=== PATIENT | female | born 1930 | race Caucasian/White ===

== ENCOUNTER 2016-12-04 14:19 | Emergency (ER) | payer MEDICARE ==
[~2016-12-04 14:19] MED LIST: ALDACTONE DPS25 MG PO; ATIVAN-DPS0.5 MG PO; BENADRYL-DPS25 MG PO; BENICAR40 MG PO; CALCIUM 600+D31 EACH PO; CATAPRES-DPS0.1 MG PO; LASIX20 M1 PO; LOVENOX DP40 MG/0.4 SQ; MAALOX DPS30 ML PO; MICRO-K DPS10 MEQ PO; MILK OF MAGNESI10 ML PO; NORCO 5-325 TA1 EACH PO; PEPCID DPS20 MG PO; PRILOSEC DPS20 MG PO; SENOKOT S1 TAB PO; TENORMIN DPS50 MG PO; TYLENOL DPS325 MG PO
--- NOTE | 2016-12-21 08:17 | ER ---
ADMIT: 12/04/2016 RM/LOC: ER [facility] MR#: [id number] [address] [facility] [address] [place], [place] [address] JHOAN MELARA [address] [address] Emergency Room Report SEX: F AGE: 86 : 1930 DATE: 12/04/2016 HISTORY OF PRESENT ILLNESS: The patient is an 86-year-old female, brought in by ambulance to the emergency room from [facility] with the symptoms of not feeling good. She has had a blood pressure that has been elevated for quite some time. Her sister who is accompanying her in the room says that she was not feeling good for about one week, but in the last 4 days, she has been worse. She had some nausea. Her daughter also mentioned that she had had speech change this weekend, but so far, it is longer than 4 hours. Her blood sugar by the ambulance crew was 136. One week ago, she went to Dr. Lundy, had labs done, and she had a good health report. REVIEW OF SYSTEMS: Positive for nausea, headache, difficulty with speech and anxiety. PAST MEDICAL HISTORY: CHF, hypertension, and GERD. She had had an appendectomy. MEDICATIONS: Include: 1. Calcium. 2. Losartan. 3. Atenolol. 4. Clonidine. 5. Spironolactone. 6. Pepcid. 7. Janel Aspirin. ALLERGIES: NONE. PHYSICAL EXAMINATION: GENERAL: Moderately anxious female. VITAL SIGNS: Blood pressure 185/78 with a heart rate of 72, respirations 19, temp is 97.8, O2 sats 96%. NECK: Supple. RESPIRATIONS: No distress. CVS: Regular in rate and rhythm. As a matter of fact, her EKG shows normal sinus rhythm at 67 beats per minute, but there are also some T changes that are verified by Dr. Antunez. No ST depression. EXTREMITIES: She does have pedal edema bilaterally. This is chronic in etiology. NEURO: Intact. Oriented x4. Mood and affect appropriate. LABORATORY DATA: CBC within normal limits. Chemistry; BUN of 28 with a ADMIT: 12/04/2016 RM/LOC: [facility] MR#: [id number] [address] [facility] [address] [place], [place] [address] FLOWER MELARAN [address] [place] [address] Emergency Room Report SEX: F AGE: 86 : 1930 glucose of 134 and a creatinine of 1.2. BNP is 1889. She has some hyaline casts in the urine and WBC cast 2. A CT scan of the head was done due to reported changes in her speech. 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 CLINICAL IMPRESSION: 1. Congestive heart failure exacerbation with mild dehydration. 2. Headache. I contacted Dr. Neal, who wanted to make an appointment in a week to kind of go over her labs and her CT report for further studies. YEE Engle / Marlo Antunez MD / modl JOB #: [id number] CC: Marlo Antunez MD, Attending Physician Shan Neal MD, Family Physician
== END 2016-12-04 17:29 | disposition home or self-care (01) ==
LOC: ER 14:19
DX: E86.0 Dehydration (principal); I11.0 Hypertensive heart disease with heart failure; I50.9 Heart failure, unspecified; K21.9 Gastro-esophageal reflux disease without esophagitis; Z90.49 Acquired absence of other specified parts of digestive tract; Z79.82 Long term (current) use of aspirin; Z79.899 Other long term (current) drug therapy

== ENCOUNTER 2016-12-24 21:42 | Emergency (ER) | payer MEDICARE ==
--- NOTE | 2016-12-26 01:26 | ER ---
ADMIT: 12/24/2016 RM/LOC: ER [facility] MR#: [id number] [address] [facility] [address] [place], [place] [address] JHOAN MELARA [address] [address] Emergency Room Report SEX: F AGE: 86 : 1930 DATE: 12/24/2016 TIME: 2142 hours. Please refer to my T-sheet for complete H and P. HISTORY OF PRESENT ILLNESS: Briefly, the patient is an 86-year-old, who comes in with blood in her urine, just started today. She has had a bladder infection in the past. PHYSICAL EXAMINATION: VITAL SIGNS: Stable. HEENT: Grossly normal. ABDOMEN: Soft and really nontender. No physical exam findings. EMERGENCY DEPARTMENT COURSE: Her urine had 588 white cells, 1478 red cells, 3+ blood, positive nitrite. I looked up her old records. The last two urine infections she has had were E. coli and they were resistant to the fluoroquinolones. I gave her a shot of Rocephin here, a dose of Pyridium. She is ready for discharge. ASSESSMENT: Acute cystitis. PLAN: Bactrim DS b.i.d. for 7 days. Pyridium 200 t.i.d. for 2 days. Return if worse. Fluids. See Dr. Neal this week. Bronson Iqbal MD/ kennedy JOB #: [id number] CC: Bronson Iqbal MD, Attending Physician Shan Neal MD, Family Physician
== END 2016-12-24 23:15 | disposition home or self-care (01) ==
LOC: ER 21:42
DX: N30.00 Acute cystitis without hematuria (principal); I11.0 Hypertensive heart disease with heart failure; I50.9 Heart failure, unspecified; Z90.49 Acquired absence of other specified parts of digestive tract; Z79.899 Other long term (current) drug therapy

== ENCOUNTER 2017-01-09 20:09 | Emergency (ER) | payer MEDICARE ==
--- NOTE | 2017-02-20 20:41 | ER ---
ADMIT: 01/09/2017 RM/LOC: ER [facility] MR#: [id number] [address] [address] JHOAN [place]ARA [place], [place] [address] Emergency Room Report SEX: F AGE: 86 : 1930 DATE: 01/09/2017 ADDENDUM: This patient comes to the ER very tearful and upset because she feels like she is all mixed up. She fell asleep today after taking her pills at the wrong time and woke up very confused, she did not know what time of day it was, did not know where she was at, and then became very tearful. According to her and her daughter, the only change in her routine today, which she took her medications early in the afternoon when she is supposed to take them at bedtime. She denies any pain, any nausea or vomiting, and she is able to ambulate without any difficulty. REVIEW OF SYSTEMS: CONSTITUTIONAL: She denies any fevers, no pain. RESPIRATORY: No cough. GI: No vomiting or diarrhea. PHYSICAL EXAMINATION: GENERAL: This is an alert, tearful 86-year-old white female. VITAL SIGNS: Temperature is 97.7, pulse 74, respirations 16, blood pressure is 160/37, O2 saturation is 97% on room air. HEENT: Eyes, clear. Head, normocephalic. TMs intact with normal light reflex. Posterior pharynx is benign. Nares are clear. NECK: Supple. HEART: Regular rate and rhythm. LUNGS: Clear to auscultation. ABDOMEN: Soft, nontender to palpation. NEURO: She is tearful, but she answers questions and speaks appropriately. Cranial nerves II through XII intact with no focal abnormalities. Strength is equal bilaterally in both the upper and lower extremities. She ambulates without any difficulty. She answers questions and speaks appropriately. LABORATORY DATA: CBC, BMP, and urinalysis are normal. DIAGNOSIS: Episode of confusion. DISCUSSION: Once the patient got to the ER and she calmed down, she had no difficulty remembering her day today and the things that had occurred. There were no stroke like symptoms. I did talk with her daughter, Lala, and she felt that this really was due to her taking her medications too early, one of which is a benzodiazepine. We will have her continue with all her normal medications, and follow up with her primary as needed. Please see my T-sheet. YEE Cobos / Bronson Iqbal MD / kennedy JOB #: [id number] CC: Bronson Iqbal MD, Attending Physician Shan Neal MD, Family Physician
== END 2017-01-09 21:30 | disposition home or self-care (01) ==
LOC: ER 20:09
DX: R41.0 Disorientation, unspecified (principal); I10 Essential (primary) hypertension; F41.9 Anxiety disorder, unspecified